=== PATIENT | female | born 1950 | race Caucasian/White ===

== ENCOUNTER 2017-08-17 09:43 | Outpatient (RCR) | payer MEDICARE, OTHER, SELFPAY ==
[2017-08-17 10:36] LABS: Prothrombin Time Fingerstick 34.1 SEC (11.9-14.4)
[2017-08-31 14:36] LABS: Prothrombin Time Fingerstick 41.4 SEC (11.9-14.4)
[2017-09-14 11:50] LABS: Prothrombin Time Fingerstick 25.3 SEC (11.9-14.4)
[2017-09-28 11:41] LABS: Prothrombin Time Fingerstick 24.9 SEC (11.9-14.4)
== END 2017-08-17 15:00 | disposition home or self-care (01) ==
LOC: MTLAB 09:43
PROVIDERS: Family Provider Family Medicine; PCP Family Medicine; Visit Provider Family Medicine
DX: Z86.718 Personal history of other venous thrombosis and embolism (principal)
CPT/HCPCS: 36416; 85610

== ENCOUNTER 2017-10-26 11:10 | Outpatient (RCR) | payer MEDICARE, OTHER, SELFPAY ==
[2017-10-26 11:25] LABS: Prothrombin Time Fingerstick 26.3 SEC (11.9-14.4)
== END 2017-10-26 12:00 | disposition home or self-care (01) ==
LOC: MTLAB 11:10
PROVIDERS: Family Provider Family Medicine; PCP Family Medicine; Visit Provider Family Medicine
DX: I26.99 Other pulmonary embolism without acute cor pulmonale (principal)
CPT/HCPCS: 36416; 85610

== ENCOUNTER → 2017-11-26 09:26 | Outpatient (CLI) | payer MEDICARE, OTHER, SELFPAY ==
[2017-11-26 09:45] LABS: Prothrombin Time Fingerstick 19.3 SEC (11.9-14.4)
== END ==
PROVIDERS: Family Provider Family Medicine; PCP Family Medicine; Visit Provider Family Medicine
DX: I26.99 Other pulmonary embolism without acute cor pulmonale (principal)
CPT/HCPCS: 36416; 85610

== ENCOUNTER 2017-12-24 09:32 | Outpatient (RCR) | payer MEDICARE, OTHER, SELFPAY ==
[2017-12-10 08:01] LABS: Prothrombin Time Fingerstick 22.4 SEC (11.9-14.4)
[2017-12-24 09:46] LABS: Prothrombin Time Fingerstick 21.1 SEC (11.9-14.4)
== END 2017-12-24 10:00 | disposition home or self-care (01) ==
LOC: MTLAB 09:32
PROVIDERS: Family Provider Family Medicine; PCP Family Medicine; Visit Provider Family Medicine
DX: I26.99 Other pulmonary embolism without acute cor pulmonale (principal)
CPT/HCPCS: 36416; 85610

== ENCOUNTER 2018-01-07 11:02 | Outpatient (RCR) | payer MEDICARE, OTHER, SELFPAY ==
[2018-01-07 11:16] LABS: Prothrombin Time Fingerstick 23.7 SEC (11.9-14.4)
== END 2018-01-07 12:00 | disposition home or self-care (01) ==
LOC: MTLAB 11:02
PROVIDERS: Family Provider Family Medicine; PCP Family Medicine; Visit Provider Family Medicine
DX: I26.99 Other pulmonary embolism without acute cor pulmonale (principal)
CPT/HCPCS: 36416; 85610

== ENCOUNTER 2018-02-07 07:27 | Outpatient (RCR) | payer MEDICARE, OTHER, SELFPAY ==
[2018-02-07 07:41] LABS: Prothrombin Time Fingerstick 25.5 SEC (11.9-14.4)
== END 2018-02-07 09:00 ==
LOC: MTLAB 07:27
PROVIDERS: Family Provider Family Medicine; PCP Family Medicine; Visit Provider Family Medicine
DX: I26.99 Other pulmonary embolism without acute cor pulmonale (principal)
CPT/HCPCS: 36416; 85610

== ENCOUNTER 2018-03-10 07:47 | Outpatient (RCR) | payer MEDICARE, OTHER, SELFPAY ==
[2018-03-10 08:00] LABS: Prothrombin Time Fingerstick 28.9 SEC (11.9-14.4)
== END 2018-03-10 09:00 | disposition home or self-care (01) ==
LOC: MTLAB 07:47
PROVIDERS: Family Provider Family Medicine; PCP Family Medicine; Visit Provider Family Medicine
DX: Z86.718 Personal history of other venous thrombosis and embolism (principal)
CPT/HCPCS: 36416; 85610

== ENCOUNTER → 2018-04-12 08:27 | Outpatient (CLI) | payer MEDICARE, OTHER, SELFPAY ==
[2018-04-12 08:50] LABS: Prothrombin Time Fingerstick 33.8 SEC (11.9-14.4)
== END ==
PROVIDERS: Family Provider Family Medicine; PCP Family Medicine; Visit Provider Family Medicine
DX: I26.99 Other pulmonary embolism without acute cor pulmonale (principal)
CPT/HCPCS: 36416; 85610

== ENCOUNTER 2018-04-25 07:25 | Outpatient (RCR) | payer MEDICARE, OTHER, SELFPAY | END 2018-04-25 09:00 | disposition home or self-care (01) | LOC: MTLAB 07:25 | PROVIDERS: Family Provider Family Medicine; PCP Family Medicine; Visit Provider Family Medicine | DX: I26.99 Other pulmonary embolism without acute cor pulmonale (principal); Z86.718 Personal history of other venous thrombosis and embolism | CPT/HCPCS: 36416; 85610 ==

== ENCOUNTER → 2018-05-27 07:01 | Outpatient (CLI) | payer MEDICARE, OTHER, SELFPAY ==
[2018-05-27 10:56] LABS: International Normalized Ratio 1.9; Prothrombin Time (Protime)PT. 22.1 SECONDS (11.7-14.9)
[2018-05-27 10:56] LABS: Hematocrit 46.2 % (37-47); Hemoglobin 14.7 g/dl (12.0-15.0); Mean Corp Hgb Conc 31.8 g/gl (32-36); Mean Corpuscular Hgb 28.8 pg (27.0-32.0); Mean Corpuscular Volume 90.4 fL (81-99); Platelet Count 247 K/mm3 (150-450); RBC Distribution Width CV 14.4 % (11.6-14.6); Red Blood Count 5.11 M/mm3 (4.2-5.4); White Blood Count 6.9 K/mm3 (4.4-11.0)
[2018-05-27 10:58] LABS: Scan Indicated on CBC? Y/N NO
[2018-05-27 11:10] LABS: ALB/GLOB Ratio 0.9 RATIO (0.9-2.4); AST(SGOT) 19 U/L (15-37); Alanine Aminotransfer ALT/SGPT 35 U/L (13-56); Albumin, Serum 3.8 g/dL (3.2-5.0); Alkaline Phosphatase 66 U/L (45-117); Anion Gap 7 (5-15); BUN 20 mg/dL (7-18); Calcium,Total 8.9 mg/dL (8.5-10.1); Chloride 106 mmol/L (98-107); Creatinine, Serum 0.74 mg/dL (0.55-1.02); EST Glomerular Filtration Rate 83 mL/min (>60); Est Glom Filt Rate - Afr Amer 100 mL/min (>60); Globulin 4.4 g/dL (2.2-4.2); Glucose 97 mg/dL (74-106); Potassium 4.5 mmol/L (3.5-5.1); Protein, Total 8.2 g/dL (6.4-8.2); Sodium Level 139 mmol/L (136-145); Thyroid Stim Hormone (TSH) 0.92 uIU/mL (0.358-3.74)
== END ==
PROVIDERS: Family Provider Family Medicine; PCP Family Medicine; Referring Provider Family Medicine; Visit Provider Family Medicine
DX: I10 Essential (primary) hypertension (principal); E03.9 Hypothyroidism, unspecified; I26.99 Other pulmonary embolism without acute cor pulmonale
CPT/HCPCS: 36415; 80053; 84443; 85027; 85610

== ENCOUNTER 2018-06-13 08:17 | Outpatient (RCR) | payer MEDICARE, OTHER, SELFPAY ==
[2018-06-13 08:30] LABS: Prothrombin Time Fingerstick 34.1 SEC (11.9-14.4)
== END 2018-06-13 09:00 | disposition home or self-care (01) ==
LOC: MTLAB 08:17
PROVIDERS: Family Provider Family Medicine; PCP Family Medicine; Referring Provider Family Medicine; Visit Provider Family Medicine
DX: I26.99 Other pulmonary embolism without acute cor pulmonale (principal)
CPT/HCPCS: 36416; 85610

== ENCOUNTER 2018-07-15 08:18 | Outpatient (RCR) | payer MEDICARE, OTHER, SELFPAY ==
[2018-06-27 14:34] VITALS: BMI 47.9
[2018-07-15 08:36] LABS: Prothrombin Time Fingerstick 32.1 SEC (11.9-14.4)
== END 2018-07-15 09:00 | disposition home or self-care (01) ==
LOC: MTLAB 08:18
PROVIDERS: Family Provider Family Medicine; PCP Family Medicine; Referring Provider Family Medicine; Visit Provider Family Medicine
DX: I26.99 Other pulmonary embolism without acute cor pulmonale (principal)
CPT/HCPCS: 36416; 85610

== ENCOUNTER 2018-08-15 13:39 | Outpatient (RCR) | payer MEDICARE, SELFPAY ==
[2018-07-21 15:46] VITALS: BMI 47.9
[2018-08-15 13:55] LABS: Prothrombin Time Fingerstick 26.1 SEC (11.9-14.4)
== END 2018-08-15 15:00 | disposition home or self-care (01) ==
LOC: MTLAB 13:39
PROVIDERS: Family Provider Family Medicine; PCP Family Medicine; Referring Provider Family Medicine; Visit Provider Family Medicine
DX: I26.99 Other pulmonary embolism without acute cor pulmonale (principal)
CPT/HCPCS: 36416; 85610

== ENCOUNTER 2018-09-15 13:44 | Outpatient (RCR) | payer MEDICARE, SELFPAY ==
[2018-07-21 15:46] VITALS: BMI 47.9
[2018-09-15 13:56] LABS: Prothrombin Time Fingerstick 29.5 SEC (11.9-14.4)
== END 2018-10-06 14:33 | disposition home or self-care (01) ==
LOC: MTLAB 13:44
PROVIDERS: Family Provider Family Medicine; PCP Family Medicine; Referring Provider Family Medicine; Visit Provider Family Medicine
DX: I26.99 Other pulmonary embolism without acute cor pulmonale (principal)
CPT/HCPCS: 36416; 85610

== ENCOUNTER 2018-10-13 14:17 | Outpatient (RCR) | payer MEDICARE, SELFPAY ==
[2018-07-21 15:46] VITALS: BMI 47.9
[2018-10-13 14:31] LABS: Prothrombin Time Fingerstick 28.2 SEC (11.9-14.4)
== END 2018-10-13 15:00 ==
LOC: MTLAB 14:17
PROVIDERS: Family Provider Family Medicine; PCP Family Medicine; Referring Provider Family Medicine; Visit Provider Family Medicine
DX: I26.99 Other pulmonary embolism without acute cor pulmonale (principal)
CPT/HCPCS: 36416; 85610

== ENCOUNTER 2018-11-28 06:47 | Outpatient (RCR) | payer MEDICARE, OTHER, SELFPAY ==
[2018-07-21 15:46] VITALS: BMI 47.9
[2018-11-15 09:20] LABS: Prothrombin Time Fingerstick 22.6 SEC (11.9-14.4)
[2018-11-28 07:35] LABS: Absolute Neutrophil Count 3.3 X10^3/uL (2.0-7.7); Basophil# 0.04 X10^3/uL; Basophil% 0.7 % (0-1); Eosinophil# 0.11 X10^3/uL; Eosinophils% 1.9 % (0-5); Hematocrit 43.4 % (37-47); Hemoglobin 14.1 g/dl (12.0-15.0); Lymphocyte % 30.3 % (19-41); Mean Corp Hgb Conc 32.5 g/gl (32-36); Mean Corpuscular Hgb 29.7 pg (27.0-32.0); Mean Corpuscular Volume 91.4 fL (81-99); Mean Platelet Vol. 10.5 fl (6.2-12.0); Monocyte# 0.66 X10^3/uL; Monocyte% 11.1 % (0-10); Neutrophil # 3.33 X10^3/uL (2.7-7.7); Platelet Count 233 K/mm3 (150-450); RBC Distribution Width CV 13.5 % (11.6-14.6); RBC Distribution Width SD 44.8 fl (35.1-43.9); Red Blood Count 4.75 M/mm3 (4.2-5.4); White Blood Count 5.9 K/mm3 (4.4-11.0)
[2018-11-28 07:38] LABS: POSITIVE COUNT NO; POSITIVE DIFFERENTIAL NO; POSITIVE MORPHOLOGY NO
[2018-11-28 08:02] LABS: ALB/GLOB Ratio 0.9 RATIO (0.9-2.4); AST(SGOT) 20 U/L (15-37); Alanine Aminotransfer ALT/SGPT 29 U/L (13-56); Albumin, Serum 3.8 g/dL (3.2-5.0); Alkaline Phosphatase 56 U/L (45-117); BUN 22 mg/dL (7-18); BUN/Creat Ratio 22.5 RATIO (10-20); Calcium,Total 9.3 mg/dL (8.5-10.1); Chloride 107 mmol/L (98-107); Cholesterol 159 mg/dL (200); Creatinine, Serum 0.98 mg/dL (0.55-1.02); EST Glomerular Filtration Rate 60 mL/min (>60); Est Glom Filt Rate - Afr Amer 73 mL/min (>60); Globulin 4.1 g/dL (2.2-4.2); Glucose 106 mg/dL (74-106); Magnesium 1.9 mg/dL (1.6-2.6); Potassium 3.9 mmol/L (3.5-5.1); Protein, Total 7.9 g/dL (6.4-8.2); Sodium Level 142 mmol/L (136-145); Triglycerides 164 mg/dL
[2018-11-28 08:03] LABS: Anion Gap 7 (5-15); High Density Lipoprotein 45 mg/dL; Thyroid Stim Hormone (TSH) 0.92 uIU/mL (0.358-3.74); Very Low Density Lipoprotein 33 mg/dL (5-40)
== END 2018-12-06 16:00 | disposition home or self-care (01) ==
LOC: MTLAB 06:47
PROVIDERS: Family Provider Family Medicine; PCP Family Medicine; Referring Provider Family Medicine; Visit Provider Family Medicine
DX: I26.99 Other pulmonary embolism without acute cor pulmonale (principal)
CPT/HCPCS: 36415; 36416; 80053; 80061; 83735; 84443; 85025; 85610

== ENCOUNTER 2018-12-28 07:13 | Outpatient (RCR) | payer MEDICARE, OTHER, SELFPAY ==
[2018-07-21 15:46] VITALS: BMI 47.9
[2018-12-28 07:36] LABS: Prothrombin Time Fingerstick 25.3 SEC (11.9-14.4)
== END 2018-12-28 09:00 | disposition home or self-care (01) ==
LOC: MTLAB 07:13
PROVIDERS: Family Provider Family Medicine; PCP Family Medicine; Referring Provider Family Medicine; Visit Provider Family Medicine
DX: I26.99 Other pulmonary embolism without acute cor pulmonale (principal)
CPT/HCPCS: 36416; 85610

== ENCOUNTER 2019-01-30 07:34 | Outpatient (RCR) | payer MEDICARE, OTHER, SELFPAY ==
[2018-07-21 15:46] VITALS: BMI 47.9
[2019-01-17 10:48] VITALS: BMI 47.9
[2019-01-30 07:50] LABS: Prothrombin Time Fingerstick 26.9 SEC (11.9-14.4)
== END 2019-01-30 08:00 | disposition home or self-care (01) ==
LOC: MTLAB 07:34
PROVIDERS: Family Provider Family Medicine; PCP Family Medicine; Referring Provider Family Medicine; Visit Provider Family Medicine
DX: I26.99 Other pulmonary embolism without acute cor pulmonale (principal)
CPT/HCPCS: 36416; 85610

== ENCOUNTER 2019-03-01 07:02 | Outpatient (RCR) | payer MEDICARE, OTHER, SELFPAY ==
[2019-01-17 10:48] VITALS: BMI 47.9
[2019-03-01 07:15] LABS: Prothrombin Time Fingerstick 30.4 SEC (11.9-14.4)
== END 2019-03-08 16:03 | disposition home or self-care (01) ==
LOC: MTLAB 07:02
PROVIDERS: Family Provider Family Medicine; PCP Family Medicine; Referring Provider Family Medicine; Visit Provider Family Medicine
DX: I26.99 Other pulmonary embolism without acute cor pulmonale (principal)
CPT/HCPCS: 36416; 85610

== ENCOUNTER 2019-05-08 07:38 | Outpatient (RCR) | payer MEDICARE, OTHER, SELFPAY ==
[2019-01-17 10:48] VITALS: BMI 47.9
[2019-05-08 07:49] LABS: Prothrombin Time Fingerstick 25.5 SEC (11.9-14.4)
== END 2019-05-08 18:00 | disposition home or self-care (01) ==
LOC: MTLAB 07:38
PROVIDERS: Family Provider Family Medicine; PCP Family Medicine; Referring Provider Family Medicine; Visit Provider Family Medicine
DX: I26.99 Other pulmonary embolism without acute cor pulmonale (principal)
CPT/HCPCS: 36416; 85610

== ENCOUNTER 2019-06-07 07:49 | Outpatient (RCR) | payer MEDICARE, OTHER, SELFPAY ==
[2019-01-17 10:48] VITALS: BMI 47.9
[2019-06-07 08:02] LABS: Prothrombin Time Fingerstick 30.4 SEC (11.9-14.4)
== END 2019-06-07 18:00 | disposition home or self-care (01) ==
LOC: MTLAB 07:49
PROVIDERS: Family Provider Family Medicine; PCP Family Medicine; Referring Provider Family Medicine; Visit Provider Family Medicine
DX: Z86.711 Personal history of pulmonary embolism (principal)
CPT/HCPCS: 36416; 85610

== ENCOUNTER 2019-08-03 14:25 | Outpatient (RCR) | payer MEDICARE, OTHER, SELFPAY ==
[2019-01-17 10:48] VITALS: BMI 47.9
[2019-07-10 08:51] LABS: Hematocrit 43.1 % (37-47); Mean Corp Hgb Conc 32.5 g/dL (32-36); Mean Corpuscular Volume 89.2 fL (81-99); Mean Platelet Vol. 10.1 fl (6.2-12.0); Platelet Count 231 K/mm3 (150-450); RBC Distribution Width CV 14.6 % (11.6-14.6); RBC Distribution Width SD 47.6 fl (35.1-43.9); Red Blood Count 4.83 M/mm3 (4.2-5.4); White Blood Count 5.6 K/mm3 (4.4-11.0)
[2019-07-10 09:26] LABS: International Normalized Ratio 1.9; Prothrombin Time (Protime)PT. 21.6 SECONDS (11.7-14.9)
[2019-07-10 09:30] LABS: ALB/GLOB Ratio 0.9 RATIO (0.9-2.4); AST(SGOT) 21 U/L (15-37); Alanine Aminotransfer ALT/SGPT 34 U/L (13-56); Albumin, Serum 3.7 g/dL (3.2-5.0); Alkaline Phosphatase 60 U/L (45-117); Anion Gap 7 (5-15); BUN 19 mg/dL (7-18); BUN/Creat Ratio 21.3 RATIO (10-20); Calcium,Total 8.8 mg/dL (8.5-10.1); Chloride 108 mmol/L (98-107); Creatinine, Serum 0.89 mg/dL (0.55-1.02); EST Glomerular Filtration Rate 66 mL/min (>60); Est Glom Filt Rate - Afr Amer 80 mL/min (>60); Globulin 4.1 g/dL (2.2-4.2); Glucose 114 mg/dL (74-106); Potassium 4.1 mmol/L (3.5-5.1); Protein, Total 7.8 g/dL (6.4-8.2); Sodium Level 140 mmol/L (136-145)
[2019-07-20 08:01] LABS: Prothrombin Time Fingerstick 32.9 SEC (11.9-14.4)
[2019-08-03 14:36] LABS: Prothrombin Time Fingerstick 30.6 SEC (11.9-14.4)
== END 2019-08-03 18:00 | disposition home or self-care (01) ==
LOC: LAB 14:25
PROVIDERS: Family Provider Family Medicine; PCP Family Medicine; Referring Provider Family Medicine; Visit Provider Family Medicine
DX: I26.99 Other pulmonary embolism without acute cor pulmonale (principal); I10 Essential (primary) hypertension; E03.9 Hypothyroidism, unspecified; Z79.01 Long term (current) use of anticoagulants
CPT/HCPCS: 36415; 36416; 80053; 84443; 85027; 85610

== ENCOUNTER 2019-09-04 09:05 | Outpatient (RCR) | payer MEDICARE, OTHER, SELFPAY ==
[2019-01-17 10:48] VITALS: BMI 47.9
== END 2019-09-04 18:00 | disposition home or self-care (01) ==
LOC: LAB 09:05
PROVIDERS: Family Provider Family Medicine; PCP Family Medicine; Referring Provider Family Medicine; Visit Provider Family Medicine
DX: I82.409 Acute embolism and thrombosis of unspecified deep veins of unspecified lower extremity (principal); I26.99 Other pulmonary embolism without acute cor pulmonale; Z86.718 Personal history of other venous thrombosis and embolism
CPT/HCPCS: 36416; 85610

== ENCOUNTER 2019-10-06 08:49 | Outpatient (RCR) | payer MEDICARE, OTHER, SELFPAY ==
[2019-01-17 10:48] VITALS: BMI 47.9
[2019-10-09 13:51] LABS: Prothrombin Time Fingerstick 29.9 SEC (11.9-14.4)
== END 2019-10-06 18:00 | disposition home or self-care (01) ==
LOC: LAB 08:49
PROVIDERS: Family Provider Family Medicine; PCP Family Medicine; Referring Provider Family Medicine; Visit Provider Family Medicine
DX: I82.409 Acute embolism and thrombosis of unspecified deep veins of unspecified lower extremity (principal); I26.99 Other pulmonary embolism without acute cor pulmonale; Z86.718 Personal history of other venous thrombosis and embolism
CPT/HCPCS: 36416; 85610

== ENCOUNTER 2019-11-23 06:53 | Outpatient (RCR) | payer MEDICARE, OTHER, SELFPAY ==
[2019-01-17 10:48] VITALS: BMI 47.9
[2019-10-17 17:02] VITALS: BMI 47.9
[2019-11-23 08:30] LABS: Prothrombin Time Fingerstick 30.4 SEC (11.9-14.4)
== END 2019-12-07 18:00 | disposition home or self-care (01) ==
LOC: LAB 06:53
PROVIDERS: Family Provider Family Medicine; PCP Family Medicine; Referring Provider Family Medicine; Visit Provider Family Medicine
DX: I26.99 Other pulmonary embolism without acute cor pulmonale (principal)
CPT/HCPCS: 36416; 85610

== ENCOUNTER 2019-12-25 06:45 | Outpatient (RCR) | payer MEDICARE, OTHER, SELFPAY ==
[2019-10-17 17:02] VITALS: BMI 47.9
[2019-12-25 08:26] LABS: Prothrombin Time Fingerstick 27.2 SEC (11.9-14.4)
== END 2019-12-25 18:00 | disposition home or self-care (01) ==
LOC: LAB 06:45
PROVIDERS: Family Provider Family Medicine; PCP Family Medicine; Referring Provider Family Medicine; Visit Provider Family Medicine
DX: Z86.718 Personal history of other venous thrombosis and embolism (principal)
CPT/HCPCS: 36416; 85610

== ENCOUNTER 2020-01-25 06:06 | Outpatient (RCR) | payer MEDICARE, OTHER, SELFPAY ==
[2019-10-17 17:02] VITALS: BMI 47.9
[2020-01-09 09:44] VITALS: BMI 47.9
[2020-01-25 06:35] LABS: Prothrombin Time Fingerstick 26.6 SEC (11.9-14.4)
== END 2020-01-25 18:00 | disposition home or self-care (01) ==
LOC: LAB 06:06
PROVIDERS: Family Provider Family Medicine; PCP Family Medicine; Referring Provider Family Medicine; Visit Provider Family Medicine
DX: Z86.718 Personal history of other venous thrombosis and embolism (principal)
CPT/HCPCS: 36416; 85610

== ENCOUNTER 2020-02-27 06:28 | Outpatient (RCR) | payer MEDICARE, OTHER, SELFPAY ==
[2020-01-09 09:44] VITALS: BMI 47.9
[2020-02-27 07:02] LABS: Hematocrit 43.8 % (37-47); Hemoglobin 14.3 g/dL (12.0-15.0); Mean Corp Hgb Conc 32.6 g/dL (32-36); Platelet Count 274 K/mm3 (150-450); RBC Distribution Width CV 13.6 % (11.6-14.6); RBC Distribution Width SD 46.1 fl (35.1-43.9); Red Blood Count 4.76 M/mm3 (4.2-5.4); White Blood Count 6.9 K/mm3 (4.4-11.0)
[2020-02-27 07:12] LABS: International Normalized Ratio 2.5; Prothrombin Time (Protime)PT. 26.8 SECONDS (11.7-14.9)
[2020-02-27 07:59] LABS: ALB/GLOB Ratio 0.9 RATIO (0.9-2.4); AST(SGOT) 15 U/L (15-37); Alanine Aminotransfer ALT/SGPT 34 U/L (13-56); Albumin, Serum 3.8 g/dL (3.2-5.0); Alkaline Phosphatase 61 U/L (45-117); Anion Gap 6 (5-15); BUN 24 mg/dL (7-18); Calcium,Total 8.9 mg/dL (8.5-10.1); Chloride 108 mmol/L (98-107); Creatinine, Serum 1.09 mg/dL (0.55-1.02); EST Glomerular Filtration Rate 53 mL/min (>60); Est Glom Filt Rate - Afr Amer 64 mL/min (>60); Globulin 4.3 g/dL (2.2-4.2); Glucose 129 mg/dL (74-106); Potassium 4.2 mmol/L (3.5-5.1); Protein, Total 8.1 g/dL (6.4-8.2); Sodium Level 140 mmol/L (136-145); Thyroid Stim Hormone (TSH) 2.33 uIU/mL (0.358-3.74)
== END 2020-02-27 18:00 | disposition home or self-care (01) ==
LOC: LAB 06:28
PROVIDERS: Family Provider Family Medicine; PCP Family Medicine; Referring Provider Family Medicine; Visit Provider Family Medicine
DX: Z86.718 Personal history of other venous thrombosis and embolism (principal); I10 Essential (primary) hypertension
CPT/HCPCS: 36415; 80053; 84443; 85027; 85610

== ENCOUNTER 2020-03-28 07:02 | Outpatient (RCR) | payer MEDICARE, OTHER, SELFPAY ==
[2020-01-09 09:44] VITALS: BMI 47.9
[2020-03-28 07:15] LABS: Prothrombin Time Fingerstick 31.7 SEC (11.9-14.4)
== END 2020-04-08 18:00 | disposition home or self-care (01) ==
LOC: LAB 07:02
PROVIDERS: Family Provider Family Medicine; PCP Family Medicine; Referring Provider Family Medicine; Visit Provider Family Medicine
DX: Z86.718 Personal history of other venous thrombosis and embolism (principal)
CPT/HCPCS: 36416; 85610

== ENCOUNTER 2020-04-22 14:51 | Emergency (ER) | payer MEDICARE, OTHER, SELFPAY ==
[2020-01-09 09:44] VITALS: BMI 47.9
[2020-04-22 14:52] VITALS: BP 206/78; PULSE 53; PULSE 96; RESP 17; TEMP 35.9; O2SAT 95; O2SAT 96; BMI 50.8
--- NOTE | 2020-04-22 15:14 | VDLE_ITS ---
Reason For Study: swelling RIGHT LEFT GSV is normal. GSV is normal. CFV is compressible, spontaneous, phasic, Chronic vein wall thickening is noted in the competent and demonstrates normal CFV, FV, POP V, and T/P Trunk. Normal venous augmentation. flow patterns noted. FV is compressible, spontaneous, phasic, PTV is compressible. competent and demonstrates normal LT PerV is compressible. augmentation. POP V is compressible, spontaneous, phasic, competent and demonstrates normal augmentation. T/P Trunk is compressible. PTV is compressible. RT PerV is compressible. Procedure Exam performed portable in ED. The exam was diagnostic. A preliminary report was called and/or faxed to Dr. Puckett. Interpretation Summary Chronic vein wall thickening is noted in the left common femoral vein, femoral vein, popliteal vein, and tibio-peroneal trunk, though with normal venous flow patterns. The left posterior tibial vein and peroneal vein are patent and compressible. Deep veins of the right lower extremity are patent and compressible segmentally. There is no evidence of right lower extremity deep vein thrombosis. Valvular competence appears intact within the proximal deep venous system on the right . The great saphenous veins appear bilaterally patent and compressible segmentally. Ordering Physician: Linnette Puckett Performed By: Ross Woodard RVT
--- NOTE | 2020-04-22 15:14 | RAD_ITS ---
STUDY: X-RAY CHEST REASON FOR EXAM: Female, 69 years old. BILATERAL LEG WEAKNESS, SHORT OF BREATH ON EXERTION TECHNIQUE: Single AP portable view of the chest. COMPARISON: 02/26/2016 FINDINGS: The lungs are clear and expanded. Elevated right hemidiaphragm which is unchanged. Normal size heart. Normal mediastinum and mario. Normal visualized pulmonary arteries. Normal visualized aortic arch and descending thoracic aorta. Normal visualized thoracic spine. Normal visualized ribs, clavicles, and shoulders. There is no demonstrated abnormality of the visualized soft tissue structures of the upper abdomen. RAD/Chest 1 View (Portable) IMPRESSION: No active disease. Electronically Signed: Onesimo Person MD at 16:24 EDT Tel , Service support ,
--- NOTE | 2020-04-22 15:14 | EKG12_ITS ---
Test Reason : WEAKNESS Blood Pressure : / mmHG Vent. Rate : 094 BPM Atrial Rate : 094 BPM P-R Int : 182 ms QRS Dur : 132 ms QT Int : 396 ms P-R-T Axes : 064 053 013 degrees QTc Int : 495 ms Sinus rhythm with Premature ventricular complexes Right bundle branch block Abnormal ECG Confirmed by FABIO STARKEY, KAMI ([id number]), news copy editor LORI HANLEY ([id number]) on 04/24/2020 11:08:08 AM Referred By: Confirmed By:KAMI MCCARTHY MD
--- NOTE | 2020-04-22 15:26 | ED.DCSUM_ITS ---
- ER Visit Summary Date of Service: 04/22/20 Chief Complaint: Bilateral leg weakness History of Present Illness: The patient is a 69 F with bilateral leg weakness. Patient states she stood up and started to ambulate and she felt like her legs were going to give out. She did not fall. She denies dizziness or vertigo. She states she has been off balance for years and this is not unusual for her. The weakness has now improved. She denies back pain. Denies bowel or bladder incontinence. She states she also was experiencing shortness of breath and postnasal drip. This has also improved. She denies chest pain. Denies fever or cough. Denies vision or speech changes. Denies confusion. She also has a right forearm skin tear from hitting it on a screen door earlier today. She is on Coumadin for history of DVT/PE. Unknown last tetanus immunization. Physical Examination: Vitals are stable. Patient is afebrile. Alert no acute distress. HEENT exam is unremarkable. Neck is supple. Lungs are clear and equal bilaterally. Heart is regular rate and rhythm. Abdomen is soft nontender nondistended. Extremities mild right forearm skin tear with no active bleeding Skin is warm and dry. No focal neurologic deficit. Normal strength and sensation Remainder of exam is unremarkable. Emergency Department Course and Treatment: Wound was cleaned and dressed. She was given tetanus IM. CBC, chemistries unremarkable. Troponin is negative. INR 2.5. EKG is sinus rhythm rate of 94 with right bundle branch block, similar to previous. Bilateral venous Doppler shows no evidence of acute DVT. Chest x- ray shows no active disease. CT head shows chronic involutional changes of the brain. On reevaluation, patient is feeling improved. She is able to ambulate in the ED without difficulty. She is advised to follow-up with her primary care physician. Advised return to the ED for worsening complaints. Disposition: Discharge home Impression: Generalized weakness, improved This note was generated with [employer] dictation software. It may contain incorrect words, spelling, and punctuation that were not noted in review of the chart prior to signing ED Disposition - Plan for ED Patient: Instructions: ED Weakness [facility] Referrals: Surya Francisco MD [Primary Care Provider] -
[2020-04-22 15:38] LABS: Absolute Lymphocyte Count 1.18 X10^3/uL (0.83-4.51); Absolute Neutrophil Count 6.1 X10^3/uL (2.0-7.7); Basophil# 0.06 X10^3/uL; Basophil% 0.7 % (0-1); Eosinophil# 0.12 X10^3/uL; Eosinophils% 1.4 % (0-5); Hematocrit 41.2 % (37-47); Hemoglobin 13.7 g/dL (12.0-15.0); Lymphocyte # 1.18 X10^3/ul (4.0); Lymphocyte % 13.9 % (19-41); Mean Corp Hgb Conc 33.3 g/dL (32-36); Mean Corpuscular Hgb 30.6 pg (27.0-32.0); Mean Platelet Vol. 9.8 fl (6.2-12.0); Monocyte# 1.04 X10^3/uL; Monocyte% 12.2 % (0-10); NRBC Flagged by Analyzer 0 % (0-5); Neutrophil # 6.09 X10^3/uL (2.7-7.7); Neutrophil % 71.6 % (47-70); Platelet Count 255 K/mm3 (150-450); RBC Distribution Width CV 14.1 % (11.6-14.6); RBC Distribution Width SD 47.8 fl (35.1-43.9); Red Blood Count 4.48 M/mm3 (4.2-5.4); White Blood Count 8.5 K/mm3 (4.4-11.0)
[2020-04-22] MEDS: Diphth,Pertuss(Acell),Tet Vac 0.5 ML Vial IM (15:55)
[2020-04-22 15:56] LABS: International Normalized Ratio 2.5
[2020-04-22 16:02] LABS: Anion Gap 5 (5-15); BUN 21 mg/dL (7-18); BUN/Creat Ratio 23.3 RATIO (10-20); Calcium,Total 9.5 mg/dL (8.5-10.1); Chloride 107 mmol/L (98-107); EST Glomerular Filtration Rate 65 mL/min (>60); Est Glom Filt Rate - Afr Amer 79 mL/min (>60); Estimated Creatinine Clearance 56.56 ml/min; Glucose 100 mg/dL (74-106); Potassium 4.1 mmol/L (3.5-5.1); Sodium Level 141 mmol/L (136-145)
--- NOTE | 2020-04-22 16:12 | CT_ITS ---
STUDY: CT BRAIN WITHOUT CONTRAST REASON FOR EXAM: Female, 69 years old. BILATERAL LEG WEAKNESS WITH SOB ON EXERTION. HX OF PE,DVT, HTN RADIATION DOSAGE (If Supplied By Facility): CTDIvol = ( 44.99 ) mGy, DLP = ( 863.60 ) mGycm TECHNIQUE: Transaxial CT imaging of the brain was performed without administration of intravenous contrast material. Individualized dose optimization techniques were used for this CT. COMPARISON: No relevant priors. FINDINGS: Normal soft tissue structures. Normal calvarium. There is mild cerebral atrophy with widening of the extra-axial spaces and ventricular dilatation. There are areas of decreased attenuation within the white matter tracts of the supratentorial brain, consistent with microvascular disease changes. Normal basal ganglia and thalami. Normal brainstem. Normal cerebellum. There is no intracranial hemorrhage. There are no findings of an acute ischemic infarction. Normal visualized paranasal sinuses. CT/Brain/Head without Contrast IMPRESSION: Chronic involutional changes of the brain. Electronically Signed: Onesimo Person MD at 16:50 EDT Tel , Service support ,
--- NOTE | 2020-04-22 17:21 | ED.DEP ---
ED Disposition - Plan for ED Patient: Instructions: ED Weakness [facility] Referrals: Surya Francisco MD [Primary Care Provider] -
[2020-04-22 17:46] VITALS: RESP 18
== END 2020-04-22 17:48 | disposition home or self-care (01) ==
LOC: ED 15:18
PROVIDERS: Emergency Provider Emergency Medicine; PCP Family Medicine
DX: R53.1 Weakness (principal); I10 Essential (primary) hypertension; Z86.718 Personal history of other venous thrombosis and embolism; Z86.711 Personal history of pulmonary embolism; Z79.01 Long term (current) use of anticoagulants; Z23 Encounter for immunization; Z87.891 Personal history of nicotine dependence; Z79.899 Other long term (current) drug therapy
CPT/HCPCS: 70450; 71045; 80048; 84484; 85025; 85610; 90471; 90715; 93005; 93970; 99283; A4216

== ENCOUNTER 2020-05-22 07:18 | Outpatient (RCR) | payer MEDICARE, OTHER, SELFPAY ==
[2020-01-09 09:44] VITALS: BMI 47.9
[2020-05-22 07:40] LABS: Prothrombin Time Fingerstick 30.8 SEC (11.9-14.4)
== END 2020-05-22 18:00 | disposition home or self-care (01) ==
LOC: LAB 07:18
PROVIDERS: Family Provider Family Medicine; PCP Family Medicine; Referring Provider Family Medicine; Visit Provider Family Medicine
DX: Z86.718 Personal history of other venous thrombosis and embolism (principal)
CPT/HCPCS: 36416; 85610

== ENCOUNTER 2020-06-24 08:23 | Outpatient (RCR) | payer MEDICARE, OTHER, SELFPAY ==
[2020-06-24 08:35] LABS: Prothrombin Time Fingerstick 35.7 SEC (11.9-14.4)
== END 2020-06-24 18:00 | disposition home or self-care (01) ==
LOC: MTLAB 08:23
PROVIDERS: Family Provider Family Medicine; PCP Family Medicine; Referring Provider Family Medicine; Visit Provider Family Medicine
DX: Z86.718 Personal history of other venous thrombosis and embolism (principal)
CPT/HCPCS: 36416; 85610

== ENCOUNTER 2020-07-24 08:34 | Outpatient (RCR) | payer MEDICARE, OTHER, SELFPAY ==
[2020-07-10 09:16] LABS: Prothrombin Time Fingerstick 32.6 SEC (11.9-14.4)
[2020-07-24 08:51] LABS: Prothrombin Time Fingerstick 27.4 SEC (11.9-14.4)
== END 2020-07-24 18:00 | disposition home or self-care (01) ==
LOC: MTLAB 08:34
PROVIDERS: Family Provider Family Medicine; PCP Family Medicine; Referring Provider Family Medicine; Visit Provider Family Medicine
DX: Z86.718 Personal history of other venous thrombosis and embolism (principal); Z79.01 Long term (current) use of anticoagulants
CPT/HCPCS: 36416; 85610

== ENCOUNTER 2020-08-26 08:06 | Outpatient (RCR) | payer MEDICARE, OTHER, SELFPAY ==
[2020-08-26 08:21] LABS: Prothrombin Time Fingerstick 25.1 SEC (11.9-14.4)
== END 2020-08-26 18:00 | disposition home or self-care (01) ==
LOC: MTLAB 08:06
PROVIDERS: Family Provider Family Medicine; PCP Family Medicine; Referring Provider Family Medicine; Visit Provider Family Medicine
DX: Z86.718 Personal history of other venous thrombosis and embolism (principal); Z79.01 Long term (current) use of anticoagulants
CPT/HCPCS: 36416; 85610

== ENCOUNTER 2020-09-27 13:38 | Outpatient (RCR) | payer MEDICARE, OTHER, SELFPAY ==
[2020-09-27 14:41] LABS: Prothrombin Time Fingerstick 23.6 SEC (11.9-14.4)
== END 2020-09-27 18:00 | disposition home or self-care (01) ==
LOC: MTLAB 13:38
PROVIDERS: Family Provider Family Medicine; PCP Family Medicine; Referring Provider Family Medicine; Visit Provider Family Medicine
DX: Z86.718 Personal history of other venous thrombosis and embolism (principal); Z79.01 Long term (current) use of anticoagulants
CPT/HCPCS: 36416; 85610

== ENCOUNTER 2020-10-28 14:44 | Outpatient (RCR) | payer MEDICARE, OTHER, SELFPAY ==
[2020-10-28 14:51] LABS: INR Fingerstick 2.3; Prothrombin Time Fingerstick 25.7 SEC (11.9-14.4)
== END 2020-10-28 18:00 | disposition home or self-care (01) ==
LOC: MTLAB 14:44
PROVIDERS: Family Provider Family Medicine; PCP Family Medicine; Referring Provider Family Medicine; Visit Provider Family Medicine
DX: Z86.718 Personal history of other venous thrombosis and embolism (principal); Z79.01 Long term (current) use of anticoagulants
CPT/HCPCS: 36416; 85610

== ENCOUNTER 2020-12-02 08:56 | Outpatient (RCR) | payer MEDICARE, OTHER, SELFPAY ==
[2020-12-03 00:51] LABS: INR Fingerstick 2.4; Prothrombin Time Fingerstick 26.6 SEC (11.9-14.4)
== END 2020-12-02 18:00 | disposition home or self-care (01) ==
LOC: MTLAB 08:56
PROVIDERS: Family Provider Family Medicine; PCP Family Medicine; Referring Provider Family Medicine; Visit Provider Family Medicine
DX: Z86.718 Personal history of other venous thrombosis and embolism (principal); Z79.01 Long term (current) use of anticoagulants
CPT/HCPCS: 36416; 85610

== ENCOUNTER 2021-01-01 07:06 | Outpatient (RCR) | payer MEDICARE, OTHER, SELFPAY ==
[2021-01-01 07:15] LABS: INR Fingerstick 2.6; Prothrombin Time Fingerstick 29.5 SEC (11.9-14.4)
== END 2021-01-01 18:00 | disposition home or self-care (01) ==
LOC: MTLAB 07:06
PROVIDERS: Family Provider Family Medicine; PCP Family Medicine; Referring Provider Family Medicine; Visit Provider Family Medicine
DX: Z86.718 Personal history of other venous thrombosis and embolism (principal); Z79.01 Long term (current) use of anticoagulants
CPT/HCPCS: 36416; 85610

== ENCOUNTER 2021-01-08 17:46 | Emergency (ER) | payer MEDICARE, OTHER, SELFPAY ==
[2021-01-08 17:47] VITALS: BP 248/109; PULSE 80; RESP 16; TEMP 36.6; O2SAT 94; BMI 47.0
--- NOTE | 2021-01-08 18:21 | RAD_ITS ---
INDICATION: cp EXAMINATION/TECHNIQUE: X-RAY - XR Chest 1 View COMPARISON: 04/22/2020. FINDINGS: Central pulmonary venous congestion. The heart is borderline enlarged. Questionable trace bilateral pleural effusions. Persistent elevation of the right hemidiaphragm. No acute osseous abnormalities. RAD/Chest 1 View (Portable) IMPRESSION: Borderline cardiomegaly with central pulmonary venous congestion and trace bilateral pleural effusions. Cannot rule out superimposed infection in the left lung base. Electronically Signed: Pramod Chavira MD at 19:01 EDT Tel , Service support ,
--- NOTE | 2021-01-08 18:21 | EKG12_ITS ---
Test Reason : DYSRHYTHMIA Blood Pressure : / mmHG Vent. Rate : 085 BPM Atrial Rate : 085 BPM P-R Int : 180 ms QRS Dur : 132 ms QT Int : 396 ms P-R-T Axes : 062 054 005 degrees QTc Int : 471 ms Sinus rhythm with frequent Premature ventricular complexes Right bundle branch block Abnormal ECG Confirmed by LILIA STARKEY, TATIANA ([id number]), legal editor LORI HANLEY ([id number]) on 01/09/2021 12:56:15 PM Referred By: TORI Confirmed By:SOPHIA RODRIGUES MD
--- NOTE | 2021-01-08 18:22 | EDS_ITS ---
HPI History of Present Illness Chief Complaint: Anxiety Informant: patient Onset/Context/Timing Onset: Days Context: Gradual Onset Timing: Waxes and wanes Current Severity: Mild Maximum Severity: Moderate Narrative Narrative: Patient presents with intermittent anxiety for the last 4 days. Patient states that she will have a sensation of a hamster on a wheel in her chest. She would did reported tell her brother she had some chest pain but got better after belching. She states in the past she had similar symptoms when she had a UTI. Patient has had Xanax in the past and done well with that in spite of having an allergy to Ativan. [facility] Medical History (Updated 01/08/21 @ 20:[address] Kalina Shaw MD) Anxiety Arthritis Back pain Difficulty balancing History of DVT (deep vein thrombosis) history of ivc filter history of liver infection History of UTI Hypertension Hypothyroidism Knee pain Limb weakness Liver disease Neck pain Osteoarthritis Pulmonary embolism Shortness of breath Home Medications levothyroxine 100 mcg PO DAILY 12/04/15 [History Last Taken 02/22/17] metoprolol tartrate 50 mg PO BID 12/04/15 [History Last Taken 02/22/17] warfarin 10 mg PO DAILY 12/04/15 [History Last Taken 02/22/17] alprazolam 0.25 mg PO PRN PRN 04/19/16 [History Last Taken 02/22/17] ascorbate calcium (vitamin C) 814 mg/gram oral powder 1,000 mg PO DAILY g 01/17/19 [History Last Taken Unknown] ibuprofen 200 mg capsule 200 mg PO Q6H 01/17/19 [History Last Taken Unknown] lisinopril 2.5 mg tablet 30 mg PO DAILY 01/17/19 [History Last Taken Unknown] gsdvneqsswic-Oc-qqfx-minerals 1 tab PO DAILY tab 01/17/19 [History Last Taken Unknown] potassium 99 mg tablet 99 mg PO DAILY 01/17/19 [History Last Taken Unknown] alprazolam [Xanax] 0.25 mg PO TID PRN #14 tab 01/08/21 [Rx Last Taken Unknown] Allergy/AdvReac Type Severity Reaction Status Date / Time Sulfa (Sulfonamide Allergy Severe Anaphylaxis Verified 01/08/21 17:50 Antibiotics) acetaminophen [From Tylenol] Allergy Anaphylaxis Verified 01/08/21 17:50 citalopram hydrobromide Allergy Other Verified 01/08/21 17:50 [From Celexa] naproxen Allergy Shortness Verified 01/08/21 17:50 of breath sertraline HCl [From Zoloft] Allergy Shortness Verified 01/08/21 17:50 of breath lorazepam [From Ativan] AdvReac Mild Agitation Verified 01/08/21 17:50 meclizine HCl [From Antivert] AdvReac Mild rapid Verified 01/08/21 17:50 hearth beat Surgical History H/O colectomy H/O umbilical hernia repair History of cholecystectomy Social History Smoking Status: Never smoker alcohol intake: never ROS ROS ED Constitutional Constitutional ED: Denies chills or fever(s) Eyes Eyes: Denies change in vision ENT ENT ED: Denies sore throat Cardiovascular Cardiovascular: Reports chest pain Respiratory/Chest Respiratory/Chest: Denies cough or dyspnea Gastrointestinal Gastrointestinal: Denies abdominal pain, diarrhea, nausea or vomiting Genitourinary Genitourinary ED: Denies dysuria Musculoskeletal Musculoskeletal: Denies back pain Integumentary Denies rash Neurologic Neurologic: Denies headache(s) or weakness Psychiatric Psychiatric: Reports anxiety; Denies depression Endocrine Endocrinology: Denies polydipsia or polyuria Allergic/Immunologic Allergic/Immunologic ED: Denies urticaria EXAM Physical Exam Const Vital Signs: 01/08/21 17:47 Temperature 97.8 F Temperature Source Temporal Pulse Rate 80 Respiratory Rate 16 Blood Pressure 248/109 H Blood Pressure Mean 155 Pulse Ox 94 Oxygen Delivery Method Room Air Positive well nourished and well developed General Appearance ED: well developed HEENT Reports normocephalic and head/scalp atraumatic Eyes PERRL and EOMs intact bilaterally Neck supple Chest Wall inspection of chest normal and palpation of chest normal Resp normal respiratory effort and clear to auscultation bilaterally Cardio regular rate and regular rhythm GI normal to inspection, nondistended, normoactive bowel sounds Palpation: soft Back/Spine no CVA tenderness Extremity normal to inspection Neuro oriented x3 and no sensory deficits noted Sensorium / Orientation: alert Motor Exam: strength 5/5 throughout Psych Mood & Affect: anxious Skin no rashes or lesions noted MDM MDM MDM Narrative Medical decision making narrative: Patient was given 0.25 mg of Xanax. EKG, lab work, urinalysis are obtained. Lab Data Attestation: I reviewed the patient's lab results. Labs: Laboratory Results - last 24 hr 01/08/21 01/08/21 01/08/21 18:25 18:37 18:37 WBC 8.1 RBC 4.71 Hgb 13.9 Hct 42.5 MCV 90.2 MCH 29.5 MCHC 32.7 RDW Std Deviation 45.9 H RDW Coeff of Cathleen 13.8 Plt Count 295 MPV 9.9 Immature Gran % (Auto) 0.400 Neut % (Auto) 68.3 Lymph % (Auto) 19.4 Clare % (Auto) 10.3 H Eos % (Auto) 0.9 Baso % (Auto) 0.7 Absolute Neuts (auto) 5.5 Absolute Lymphs (auto) 1.57 Nucleated RBC % 0 Sodium 140 Potassium 4.1 Chloride 106 Carbon Dioxide 29.0 Anion Gap 5 BUN 11 Creatinine 0.84 Estim Creat Clear Calc 59.74 Est GFR (MDRD) Af Amer 86 Est GFR (MDRD) Non-Af 71 BUN/Creatinine Ratio 13.1 Glucose 113 H Calcium 9.1 Troponin I < 0.015 Urine Color Yellow Urine Clarity Cloudy Urine pH 6.0 Ur Specific Moore 1.010 Urine Protein 15 H Urine Glucose (UA) Normal Urine Ketones Negative Urine Occult Blood 250 H Urine Nitrite Negative Urine Bilirubin Negative Urine Urobilinogen Normal Ur Leukocyte Esterase 25 H Urine RBC 50-100 SEEN Urine WBC 0-5 SEEN Ur Squamous Epith Cells 0 SEEN Urine Bacteria 0 SEEN WBC Casts 0-5 SEEN Urine Mucus 0 SEEN Radiography Chest X-Ray - ED: 1 View, Read by ED Physician and Chronic Changes Diagnostic Testing: Radiology Impression Chest X-Ray 01/08/21 18:21 IMPRESSION: Borderline cardiomegaly with central pulmonary venous congestion and trace bilateral pleural effusions. Cannot rule out superimposed infection in the left lung base. Electronically Signed: Pramod Chavira MD at 19:01 EDT Tel , Service support , EKG Initial EKG: Attestation: I personally reviewed and interpreted this EKG as follows: Interpretation: Sinus Rhythm (Sinus 85 with frequent PVCs. No acute ST change. Right bundle branch block noted.) Prior EKG tracings: available for review Prior: Unchanged Treatment and Re-Evaluation Comments:: On repeat evaluation patient feels much improved. Blood pressure at this time is 175/112. She will be sure to continue her antihypertensives at home. She will be written a short course of Xanax until she can follow-up with her primary care physician. Discharge Plan Triage Chief Complaint: Anxiety ED Provider: Kalina Shaw Dx/Rx/DC Orders Clinical Impression: Anxiety, Hypertension Instructions: ED Anxiety Reaction, ED Hypertension, Established Prescriptions: New alprazolam [Xanax] 0.25 mg tablet 0.25 mg PO TID PRN (Reason: anxiety) Qty: 14 RF: 0 No Action lisinopril 2.5 mg tablet 30 mg PO DAILY RF: 0 ibuprofen 200 mg capsule 200 mg PO Q6H RF: 0 bkmgpoipfrjp-Wa-aakp-minerals tablet 1 tab PO DAILY RF: 0 ascorbate calcium (vitamin C) 814 mg/gram powder 1,000 mg PO DAILY RF: 0 potassium 99 mg tablet 99 mg PO DAILY RF: 0 warfarin 10 MG tablet 10 mg PO DAILY RF: 0 levothyroxine 25 MCG tablet 100 mcg PO DAILY RF: 0 metoprolol tartrate 25 MG tablet 50 mg PO BID RF: 0 alprazolam 0.25 MG tablet 0.25 mg PO PRN PRN (Reason: Anxiety) RF: 0 Primary Care Provider: Surya Francisco Referrals: Surya Francisco MD [Primary Care Provider] - 5-7 Days Disposition Disposition: Home, self care
[2021-01-08 18:32] LABS: Bacteria 0 SEEN /hpf (None Seen); Mucous, Urine 0 SEEN /hpf (<or=2+); Squamous Epithelial Cells - UA 0 SEEN /hpf (5-10)
[2021-01-08 18:41] LABS: Color, Urine Yellow (Yellow); Glucose, Dipstick Normal (Normal); Ketone-Dipstick Negative (Negative); Leukocyte Esterase-Dipstick 25 /ul (Negative); Nitrite-Dipstick Negative (Negative); Occult Blood-Urine 250 /ul (Negative); Protein-Dipstick 15 mg/dl (Negative); Urine Bilirubin Dipstick Negative (Negative); Urine Clarity Cloudy (Clear); Urine Urobilinogen Normal (Normal)
[2021-01-08 18:43] LABS: Absolute Lymphocyte Count 1.57 X10^3/uL (0.83-4.51); Absolute Neutrophil Count 5.5 X10^3/uL (2.0-7.7); Basophil# 0.06 X10^3/uL; Basophil% 0.7 % (0-1); Eosinophil# 0.07 X10^3/uL; Eosinophils% 0.9 % (0-5); Hematocrit 42.5 % (37-47); Hemoglobin 13.9 g/dL (12.0-15.0); Lymphocyte # 1.57 X10^3/ul (0.83-4.51); Lymphocyte % 19.4 % (19-41); Mean Corp Hgb Conc 32.7 g/dL (32-36); Mean Corpuscular Hgb 29.5 pg (27.0-32.0); Mean Corpuscular Volume 90.2 fL (81-99); Mean Platelet Vol. 9.9 fl (6.2-12.0); Monocyte# 0.83 X10^3/uL; Monocyte% 10.3 % (0-10); NRBC Flagged by Analyzer 0 % (0-5); Neutrophil # 5.52 X10^3/uL (2.7-7.7); Neutrophil % 68.3 % (47-70); Platelet Count 295 K/mm3 (150-450); RBC Distribution Width CV 13.8 % (11.6-14.6); RBC Distribution Width SD 45.9 fl (35.1-43.9); Red Blood Count 4.71 M/mm3 (4.2-5.4); White Blood Count 8.1 K/mm3 (4.4-11.0)
[2021-01-08] MEDS: ALPRAZolam 0.5 MG Tablet 0.25 MG PO (18:55)
[2021-01-08 19:05] LABS: Red Blood Cells-Urine 50-100 SEEN /hpf (0-5); White Blood Cells 0-5 SEEN /hpf (0-5)
[2021-01-08 19:07] LABS: Anion Gap 5 (5-15); BUN 11 mg/dL (7-18); BUN/Creat Ratio 13.1 RATIO (10-20); Calcium,Total 9.1 mg/dL (8.5-10.1); Chloride 106 mmol/L (98-107); Creatinine, Serum 0.84 mg/dL (0.55-1.02); EST Glomerular Filtration Rate 71 mL/min (>60); Est Glom Filt Rate - Afr Amer 86 mL/min (>60); Estimated Creatinine Clearance 59.74 ml/min; Glucose 113 mg/dL (74-106); Potassium 4.1 mmol/L (3.5-5.1); Sodium Level 140 mmol/L (136-145)
[2021-01-08 19:09] LABS: White Cell Cast 0-5 SEEN /lpf (None Seen)
[2021-01-08 21:01] VITALS: BP 175/112; PULSE 80
== END 2021-01-08 21:03 | disposition home or self-care (01) ==
PROVIDERS: Emergency Provider Emergency Medicine; PCP Family Medicine
DX: F41.9 Anxiety disorder, unspecified (principal); I10 Essential (primary) hypertension; M19.90 Unspecified osteoarthritis, unspecified site; E03.9 Hypothyroidism, unspecified; Z86.718 Personal history of other venous thrombosis and embolism; Z79.01 Long term (current) use of anticoagulants; Z79.899 Other long term (current) drug therapy
CPT/HCPCS: 71045; 80048; 81001; 84484; 85025; 93005; 99285; A4216

== ENCOUNTER 2021-02-03 07:20 | Outpatient (RCR) | payer MEDICARE, OTHER, SELFPAY ==
[2021-02-03 09:50] LABS: Absolute Lymphocyte Count 1.75 X10^3/uL (0.83-4.51); Absolute Neutrophil Count 4.4 X10^3/uL (2.0-7.7); Basophil# 0.05 X10^3/uL; Basophil% 0.7 % (0-1); Eosinophil# 0.13 X10^3/uL; Eosinophils% 1.8 % (0-5); Hematocrit 43.4 % (37-47); Hemoglobin 14.3 g/dL (12.0-15.0); Lymphocyte # 1.75 X10^3/ul (0.83-4.51); Lymphocyte % 24.9 % (19-41); Mean Corp Hgb Conc 32.9 g/dL (32-36); Mean Corpuscular Hgb 29.5 pg (27.0-32.0); Mean Corpuscular Volume 89.5 fL (81-99); Mean Platelet Vol. 10.5 fl (6.2-12.0); Monocyte# 0.69 X10^3/uL; Monocyte% 9.8 % (0-10); NRBC Flagged by Analyzer 0 % (0-5); Neutrophil % 62.7 % (47-70); Platelet Count 281 K/mm3 (150-450); RBC Distribution Width CV 13.6 % (11.6-14.6); RBC Distribution Width SD 44.7 fl (35.1-43.9); Red Blood Count 4.85 M/mm3 (4.2-5.4)
[2021-02-03 10:22] LABS: International Normalized Ratio 2.2; Prothrombin Time (Protime)PT. 23.5 SECONDS (11.7-14.9)
[2021-02-03 10:32] LABS: Hemoglobin A1c 6.8 % (3.8-5.6)
[2021-02-03 10:51] LABS: ALB/GLOB Ratio 0.8 RATIO (0.9-2.4); AST(SGOT) 19 U/L (15-37); Alanine Aminotransfer ALT/SGPT 32 U/L (13-56); Albumin, Serum 3.5 g/dL (3.2-5.0); Alkaline Phosphatase 58 U/L (45-117); Anion Gap 7 (5-15); BUN 28 mg/dL (7-18); Calcium,Total 9.1 mg/dL (8.5-10.1); Chloride 103 mmol/L (98-107); Cholesterol 188 mg/dL (200); EST Glomerular Filtration Rate 58 mL/min (>60); Est Glom Filt Rate - Afr Amer 70 mL/min (>60); Globulin 4.2 g/dL (2.2-4.2); Glucose 119 mg/dL (74-106); High Density Lipoprotein 37 mg/dL; Potassium 3.6 mmol/L (3.5-5.1); Protein, Total 7.7 g/dL (6.4-8.2); Sodium Level 137 mmol/L (136-145); Thyroid Stim Hormone (TSH) 1.21 uIU/mL (0.358-3.74); Triglycerides 228 mg/dL; Very Low Density Lipoprotein 46 mg/dL (5-40)
== END 2021-02-03 18:00 | disposition home or self-care (01) ==
LOC: MTLAB 07:20
PROVIDERS: Family Provider Family Medicine; PCP Family Medicine; Referring Provider Family Medicine; Visit Provider Family Medicine
DX: Z86.718 Personal history of other venous thrombosis and embolism (principal); Z79.01 Long term (current) use of anticoagulants; I10 Essential (primary) hypertension; R73.01 Impaired fasting glucose
CPT/HCPCS: 36415; 80053; 80061; 83036; 84443; 85025; 85610

== ENCOUNTER 2021-02-04 19:24 | Emergency (ER) | payer MEDICARE, OTHER, SELFPAY ==
[2021-02-04 19:24] VITALS: PULSE 89; RESP 25; TEMP 36.7; O2SAT 94; BMI 48.8
[2021-02-04 19:31] VITALS: BP 173/84; PULSE 85; RESP 21; O2SAT 97
--- NOTE | 2021-02-04 19:57 | EKG12_ITS ---
Test Reason : CP Blood Pressure : / mmHG Vent. Rate : 081 BPM Atrial Rate : 081 BPM P-R Int : 192 ms QRS Dur : 136 ms QT Int : 424 ms P-R-T Axes : 040 054 -18 degrees QTc Int : 492 ms Sinus rhythm with frequent Premature ventricular complexes Right bundle branch block T wave abnormality, consider inferior ischemia Abnormal ECG Confirmed by FABIO STARKEY, KAMI ([id number]), managing editor LORI HANLEY ([id number]) on 02/06/2021 10:50:50 AM Referred By: WILDA Confirmed By:KAMI MCCARTHY MD
[2021-02-04 20:04] LABS: Absolute Lymphocyte Count 2.39 X10^3/uL (0.83-4.51); Absolute Neutrophil Count 6.4 X10^3/uL (2.0-7.7); Basophil# 0.06 X10^3/uL; Basophil% 0.6 % (0-1); Eosinophil# 0.15 X10^3/uL; Eosinophils% 1.5 % (0-5); Hematocrit 43.9 % (37-47); Hemoglobin 14.4 g/dL (12.0-15.0); Lymphocyte # 2.39 X10^3/ul (0.83-4.51); Lymphocyte % 23.6 % (19-41); Mean Corp Hgb Conc 32.8 g/dL (32-36); Mean Corpuscular Hgb 29.9 pg (27.0-32.0); Mean Corpuscular Volume 91.3 fL (81-99); Mean Platelet Vol. 10.9 fl (6.2-12.0); Monocyte# 1.11 X10^3/uL; NRBC Flagged by Analyzer 0 % (0-5); Neutrophil # 6.39 X10^3/uL (2.7-7.7); Neutrophil % 63.1 % (47-70); Platelet Count 269 K/mm3 (150-450); RBC Distribution Width CV 13.5 % (11.6-14.6); RBC Distribution Width SD 45.8 fl (35.1-43.9); Red Blood Count 4.81 M/mm3 (4.2-5.4); White Blood Count 10.1 K/mm3 (4.4-11.0)
--- NOTE | 2021-02-04 20:06 | RAD_ITS ---
INDICATION: chest pain EXAMINATION/TECHNIQUE: X-RAY - XR Chest 1 View COMPARISON: 01/08/2021. FINDINGS: Left basilar atelectasis. The lungs are otherwise clear. The cardiomediastinal silhouette is unremarkable. Interval resolution of trace bilateral pleural effusions. No pneumothorax. No acute osseous abnormalities. RAD/Chest 1 View (Portable) IMPRESSION: No acute radiographic abnormalities. Interval resolution of trace bilateral pleural effusions. Left basilar atelectasis. Electronically Signed: Pramod Chavira MD at 20:39 EDT Tel , Service support ,
[2021-02-04 20:09] LABS: International Normalized Ratio 1.9
[2021-02-04 20:18] LABS: Anion Gap 8 (5-15); BUN 32 mg/dL (7-18); BUN/Creat Ratio 29.1 RATIO (10-20); Chloride 103 mmol/L (98-107); EST Glomerular Filtration Rate 52 mL/min (>60); Est Glom Filt Rate - Afr Amer 63 mL/min (>60); Estimated Creatinine Clearance 45.62 ml/min; Glucose 117 mg/dL (74-106); Potassium 3.5 mmol/L (3.5-5.1); Sodium Level 138 mmol/L (136-145); Troponin-I HS 6.9 pg/mL (3.0-53.7)
[2021-02-04 22:24] LABS: Troponin-I HS 10.3 pg/mL (3.0-53.7)
[2021-02-04 22:37] VITALS: BP 186/92; PULSE 69; RESP 18; O2SAT 96
--- NOTE | 2021-02-04 23:20 | ED.VIS.CHEST ---
HPI History of Present Illness Chief Complaint: Chest Pain Informant: patient Narrative Narrative: Patient is 70-year-old female with history of anxiety, hypertension, DVT/PE on Coumadin, and prediabetes presenting with chest discomfort. Patient states all months she has been having pressure in her chest and not feeling good. She does with past few days she has been having indigestion is been taking Tums. She is on acid taste in her mouth. Tonight she had worsening pressure in her chest. It lasted for about 30 minutes. She states is currently resolved. She notes she was sweaty at the time and describes as diaphoresis. She had her INR checked yesterday and was 2.2. She does have a family history of heart disease. Patient states that she would never want a stress test or cardiac catheterization. She states as far as her treatments go she always just wants to be comfortable as she is getting older. She was recently started on chlorthalidone as well as increase her lisinopril for hypertension. No other complaints at this time. [facility] Medical History (Updated 02/04/21 @ 23:[address] Robyn Lebron, ) Anxiety Arthritis Back pain Difficulty balancing History of DVT (deep vein thrombosis) history of ivc filter history of liver infection History of UTI Hypertension Hypothyroidism Knee pain Limb weakness Liver disease Neck pain Osteoarthritis Pulmonary embolism Shortness of breath Home Medications levothyroxine 100 mcg PO DAILY 12/04/15 [History Last Taken 02/22/17] metoprolol tartrate 50 mg PO BID 12/04/15 [History Last Taken 02/22/17] warfarin 10 mg PO DAILY 12/04/15 [History Last Taken 02/22/17] alprazolam 0.25 mg PO PRN PRN 04/19/16 [History Last Taken 02/22/17] ascorbate calcium (vitamin C) 814 mg/gram oral powder 1,000 mg PO DAILY g 01/17/19 [History Last Taken Unknown] ibuprofen 200 mg capsule 400 mg PO Q6H 01/17/19 [History Last Taken Unknown] lisinopril 2.5 mg tablet 40 mg PO DAILY 01/17/19 [History Last Taken Unknown] suiagvlagiaa-Ly-wzrc-minerals 1 tab PO DAILY tab 01/17/19 [History Last Taken Unknown] potassium 99 mg tablet 99 mg PO DAILY 01/17/19 [History Last Taken Unknown] alprazolam [Xanax] 0.25 mg PO TID PRN #14 tab 01/08/21 [Rx Last Taken Unknown] chlorthalidone 25 mg PO DAILY 02/04/21 [History Last Taken Unknown] omeprazole 20 mg PO DAILY #30 cap 02/04/21 [Rx Last Taken Unknown] Allergy/AdvReac Type Severity Reaction Status Date / Time Sulfa (Sulfonamide Allergy Severe Anaphylaxis Verified 01/08/21 17:50 Antibiotics) acetaminophen [From Tylenol] Allergy Anaphylaxis Verified 01/08/21 17:50 citalopram hydrobromide Allergy Other Verified 01/08/21 17:50 [From Celexa] naproxen Allergy Shortness Verified 01/08/21 17:50 of breath sertraline HCl [From Zoloft] Allergy Shortness Verified 01/08/21 17:50 of breath lorazepam [From Ativan] AdvReac Mild Agitation Verified 01/08/21 17:50 meclizine HCl [From Antivert] AdvReac Mild rapid Verified 01/08/21 17:50 hearth beat Surgical History H/O colectomy H/O umbilical hernia repair History of cholecystectomy Social History Smoking Status: Never smoker alcohol intake: never ROS ROS ED Constitutional Constitutional ED: Denies fever(s) or subjective Eyes Eyes: Denies blurry vision or change in vision ENT ENT ED: Denies ear pain or rhinorrhea Cardiovascular Cardiovascular: Reports chest pain Respiratory/Chest Respiratory/Chest: Denies cough, dyspnea or dyspnea on exertion Gastrointestinal Gastrointestinal: Denies abdominal pain, nausea or vomiting Genitourinary Genitourinary ED: Denies dysuria or hematuria Musculoskeletal Musculoskeletal: Denies myalgias Integumentary Denies rash Neurologic Neurologic: Denies headache(s) or weakness Psychiatric Psychiatric: Denies anxiety or depression EXAM Physical Exam Const Vital Signs: 02/04/21 19:24 02/04/21 19:27 02/04/21 19:31 Temperature 98.1 F Temperature Source Oral Pulse Rate 89 85 Respiratory Rate 25 H 21 H Respiratory Effort Normal Respiratory Pattern Normal Blood Pressure 173/84 H Blood Pressure Mean 113 Pulse Ox 94 97 Oxygen Delivery Method Room Air Room Air 02/04/21 20:01 02/04/21 22:37 02/04/21 23:39 Temperature Temperature Source Pulse Rate 69 83 Respiratory Rate 18 16 Respiratory Effort Respiratory Pattern Blood Pressure 186/92 H 176/61 H Blood Pressure Mean 123 Pulse Ox 96 96 Oxygen Delivery Method Room Air Room Air Positive well nourished and well developed General Appearance ED: well developed HEENT Reports moist mucous membranes normocephalic Mouth ED: Yes moist mucous membranes normal Eyes PERRL and EOMs intact bilaterally General Eye ED: Yes normal appearance of both eyes Pupil: PERRL Neck supple and no JVD Lymph Lymphatic: no lymphadenopathy noted Chest Wall inspection of chest normal and palpation of chest normal Resp normal respiratory effort and normal air movement Cardio regular rate and regular rhythm Peripheral Pulses: pulses 2+ throughout GI normal to inspection, nondistended, normoactive bowel sounds, non-tender and non-distended Back/Spine no CVA tenderness and normal to inspection Extremity normal to inspection and full ROM Neuro oriented x3, moves all extremities and no focal motor deficits Sensorium / Orientation: awake Psych mental status grossly normal and thought process normal Skin no rashes or lesions noted and no petechiae MDM MDM MDM Narrative Medical decision making narrative: Patient evaluated for chest pressure and not feeling right. Her symptoms were going on for couple days. She appears nontoxic no acute distress. Patient is on Coumadin for DVT history. Her INR is 1.9 however it was 2.2 yesterday. I do not suspect a PE as a cause of her symptoms. Her troponin is normal range is 6.9 and on repeat it is 10.3. Chest x-ray does not show any acute process. No acute ischemic changes on EKG. Patient states that even if there was something wrong with her heart she would not want stress test, cardiac catheterization or stenting/any intervention. Given that she would not want any intervention I do not think she requires admission for further cardiac evaluation. Patient will follow up with her PCP. She is strongly encouraged to reconsider her stance at least on a stress test. She is also counseled that possibly she could have a GI cause of her symptoms and she is started on omeprazole. Patient counseled on return precautions. She verbalizes agreement understanding this plan. She is discharged home in stable condition. She will follow up with her PCP for her INR level. Lab Data Attestation: I reviewed the patient's lab results. Labs: Laboratory Results - last 24 hr 02/04/21 02/04/21 02/04/21 19:39 19:39 19:39 WBC 10.1 RBC 4.81 Hgb 14.4 Hct 43.9 MCV 91.3 MCH 29.9 MCHC 32.8 RDW Std Deviation 45.8 H RDW Coeff of Cathleen 13.5 Plt Count 269 MPV 10.9 Immature Gran % (Auto) 0.200 Neut % (Auto) 63.1 Lymph % (Auto) 23.6 Harris % (Auto) 11.0 H Eos % (Auto) 1.5 Baso % (Auto) 0.6 Absolute Neuts (auto) 6.4 Absolute Lymphs (auto) 2.39 Nucleated RBC % 0 PT 21.0 H INR 1.9 Sodium 138 Potassium 3.5 Chloride 103 Carbon Dioxide 27.0 Anion Gap 8 BUN 32 H Creatinine 1.10 H Estim Creat Clear Calc 45.62 Est GFR (MDRD) Af Amer 63 Est GFR (MDRD) Non-Af 52 L BUN/Creatinine Ratio 29.1 H Glucose 117 H Calcium 10.0 Troponin I High Sens 6.9 02/04/21 21:13 WBC RBC Hgb Hct MCV MCH MCHC RDW Std Deviation RDW Coeff of Cathleen Plt Count MPV Immature Gran % (Auto) Neut % (Auto) Lymph % (Auto) Harris % (Auto) Eos % (Auto) Baso % (Auto) Absolute Neuts (auto) Absolute Lymphs (auto) Nucleated RBC % PT INR Sodium Potassium Chloride Carbon Dioxide Anion Gap BUN Creatinine Estim Creat Clear Calc Est GFR (MDRD) Af Amer Est GFR (MDRD) Non-Af BUN/Creatinine Ratio Glucose Calcium Troponin I High Sens 10.3 Radiography Chest X-Ray - ED: 1 View, Read by ED Physician, Read by Radiologist and No Acute Disease Diagnostic Testing: Radiology Impression Chest X-Ray 02/04/21 20:06 IMPRESSION: No acute radiographic abnormalities. Interval resolution of trace bilateral pleural effusions. Left basilar atelectasis. Electronically Signed: Pramod Chavira MD at 20:39 EDT Tel , Service support , Rhythm Strip Rhythm Strip: Sinus Rhythm Rate: 81 Ectopy: PVC(s) EKG Initial EKG: Attestation: I personally reviewed and interpreted this EKG as follows: Comments: Sinus rhythm at a rate of 81 with frequent PVCs Right bundle branch block Normal axis QRS [address] segments No change made to prior EKG on 01/08/2021 Discharge Plan Triage Chief Complaint: Chest Pain ED Provider: Robyn Lebron Dx/Rx/DC Orders Clinical Impression: Chest pain, Subtherapeutic international normalized ratio (INR) Instructions: ED Chest Pain, Uncertain Cause Prescriptions: New omeprazole 20 mg capsule,delayed release(DR/EC) 20 mg PO DAILY Qty: 30 RF: 0 No Action lisinopril 2.5 mg tablet 40 mg PO DAILY RF: 0 ibuprofen 200 mg capsule 400 mg PO Q6H RF: 0 pqbzmegytzvy-Uh-svzh-minerals tablet 1 tab PO DAILY RF: 0 ascorbate calcium (vitamin C) 814 mg/gram powder 1,000 mg PO DAILY RF: 0 potassium 99 mg tablet 99 mg PO DAILY RF: 0 warfarin 10 MG tablet 10 mg PO DAILY RF: 0 levothyroxine 25 MCG tablet 100 mcg PO DAILY RF: 0 metoprolol tartrate 25 MG tablet 50 mg PO BID RF: 0 alprazolam 0.25 MG tablet 0.25 mg PO PRN PRN (Reason: Anxiety) RF: 0 alprazolam [Xanax] 0.25 mg tablet 0.25 mg PO TID PRN (Reason: anxiety) Qty: 14 RF: 0 chlorthalidone 25 mg tablet 25 mg PO DAILY RF: 0 Primary Care Provider: Surya Francisco Referrals: Sruya Francisco MD [Primary Care Provider] - Disposition Disposition: Home, Self Care Discharge Date/Time: 02/04/21 23:40
[2021-02-04 23:39] VITALS: BP 176/61; PULSE 83; RESP 16; O2SAT 96
== END 2021-02-04 23:40 | disposition home or self-care (01) ==
PROVIDERS: Emergency Provider Emergency Medicine; PCP Family Medicine
DX: R07.89 Other chest pain (principal); R79.1 Abnormal coagulation profile; F41.9 Anxiety disorder, unspecified; I10 Essential (primary) hypertension; R73.03 Prediabetes; M19.90 Unspecified osteoarthritis, unspecified site; E03.9 Hypothyroidism, unspecified; Z86.718 Personal history of other venous thrombosis and embolism; Z79.01 Long term (current) use of anticoagulants; Z79.899 Other long term (current) drug therapy
CPT/HCPCS: 71045; 80048; 84484; 85025; 85610; 93005; 99284; A4216

== ENCOUNTER 2021-02-14 09:49 | Emergency (ER) | payer MEDICARE, OTHER, SELFPAY ==
[2021-02-14 09:50] VITALS: BP 168/109; PULSE 91; RESP 14; TEMP 36.1; O2SAT 97; BMI 46.2
--- NOTE | 2021-02-14 10:05 | CT_ITS ---
STUDY: CT ABDOMEN AND PELVIS WITH CONTRAST REASON FOR EXAM: Female, 70 years old. Abdominal pain. Nausea and vomiting. History of prior hernia repair. RADIATION DOSAGE (If Supplied By Facility): CTDIvol = ( 34.99 ) mGy, DLP = ( 2092.38 ) mGycm TECHNIQUE: Transaxial images were obtained from the dome of the diaphragm to the symphysis pubis without oral contrast. IV 100mL Isovue-300 was administered. Sagittal and coronal images were reconstructed. Individualized dose optimization techniques were used for this CT. COMPARISON: Comparison is made with prior study dated 04/20/2016. FINDINGS: Minimal degree of increased markings at the lung bases slightly more prominent on the right side suggestive of a atelectasis and/or scarring. Surgical clips are seen in the left axillary region. The visualized portions of the heart are within normal limits. There is decreased attenuation of the liver consistent with steatosis. There are surgical clips in the gallbladder fossa consistent with a prior cholecystectomy. Surgical clips are seen along the lateral aspect of the spleen. The previously seen cystic density has been resected along the lateral aspect of the spleen. Normal pancreas. Normal bilateral adrenal glands. Normal right kidney. Normal left kidney. Gastric distention. There are dilated loops of the small intestine with a non-distended colon consistent with a small bowel obstruction. This is due to a large right lateral ventricle hernia. The neck of the hernia measures 12 cm. There are multiple colonic diverticula consistent with diverticulosis. Normal abdominal aorta. There is an IVC filter in place. Normal retroperitoneum. Normal urinary bladder. There are diffuse degenerative changes of the visualized lumbar spine. CT/Abdomen/Pelvis W IV Cont ONLY IMPRESSION: Large right paraumbilical hernia containing dilated small bowel loops resulting in small bowel obstruction and gastric dilatation. Fatty infiltration of the liver. Mild degree of increased markings at the lung bases slightly more prominent on the right side. Electronically Signed: Rafael Iraheta MD at 11:19 EDT , Service support ,
--- NOTE | 2021-02-14 10:09 | EX.ED.DYSGE1 ---
HPI History of Present Illness Chief Complaint: Abd Pain Informant: patient Narrative Narrative: 70-year-old female presents with abdominal pain and vomiting. Symptoms began late last evening. She states it reminds her when she had a umbilical hernia. She notes several hernia repairs and a total colectomy due to infection. Her total colectomy was performed in [place] in 2006. She is also status post cholecystectomy she did not require an ostomy bag. She notes no change in her bowel movements. Last bowel movement was during the night. No fevers. No known bad food or water. No one else sick at home. She states that she feels bloated. [facility] Medical History (Updated 02/14/21 @ 14:[address] Kaveh Etienne, ) Anxiety Arthritis Back pain Difficulty balancing History of DVT (deep vein thrombosis) history of ivc filter history of liver infection History of UTI Hypertension Hypothyroidism Knee pain Limb weakness Liver disease Neck pain Osteoarthritis Pulmonary embolism Shortness of breath Home Medications levothyroxine 100 mcg PO DAILY 12/04/15 [History Last Taken 02/22/17] metoprolol tartrate 50 mg PO BID 12/04/15 [History Last Taken 02/22/17] warfarin 10 mg PO DAILY 12/04/15 [History Last Taken 02/22/17] alprazolam 0.25 mg PO PRN PRN 04/19/16 [History Last Taken 02/22/17] ascorbate calcium (vitamin C) 814 mg/gram oral powder 1,000 mg PO DAILY g 01/17/19 [History Last Taken Unknown] ibuprofen 200 mg capsule 400 mg PO Q6H 01/17/19 [History Last Taken Unknown] lisinopril 2.5 mg tablet 40 mg PO DAILY 01/17/19 [History Last Taken Unknown] kxxrjorrwzdm-Po-yosr-minerals 1 tab PO DAILY tab 01/17/19 [History Last Taken Unknown] potassium 99 mg tablet 99 mg PO DAILY 01/17/19 [History Last Taken Unknown] alprazolam [Xanax] 0.25 mg PO TID PRN #14 tab 01/08/21 [Rx Last Taken Unknown] chlorthalidone 25 mg PO DAILY 02/04/21 [History Last Taken Unknown] omeprazole 20 mg PO DAILY #30 cap 02/04/21 [Rx Last Taken Unknown] Allergy/AdvReac Type Severity Reaction Status Date / Time Sulfa (Sulfonamide Allergy Severe Anaphylaxis Verified 02/14/21 09:50 Antibiotics) acetaminophen [From Tylenol] Allergy Anaphylaxis Verified 02/14/21 09:50 citalopram hydrobromide Allergy Other Verified 02/14/21 09:50 [From Celexa] naproxen Allergy Shortness Verified 02/14/21 09:50 of breath sertraline HCl [From Zoloft] Allergy Shortness Verified 02/14/21 09:50 of breath lorazepam [From Ativan] AdvReac Mild Agitation Verified 02/14/21 09:50 meclizine HCl [From Antivert] AdvReac Mild rapid Verified 02/14/21 09:50 hearth beat Surgical History H/O colectomy H/O umbilical hernia repair History of cholecystectomy Social History Smoking Status: Never smoker alcohol intake: never ROS ROS ED Constitutional Constitutional ED: Denies chills or weight loss Eyes Eyes: Denies change in vision or diplopia ENT ENT ED: Denies ear pain, rhinorrhea or sore throat Cardiovascular Cardiovascular: Denies chest pain, orthopnea, palpitations or racing heartbeat Respiratory/Chest Respiratory/Chest: Denies cough, dyspnea or orthopnea Gastrointestinal Gastrointestinal: Reports abdominal pain, nausea and vomiting; Denies diarrhea Genitourinary Genitourinary ED: Denies dysuria, hematuria or urinary frequency Musculoskeletal Musculoskeletal: Denies arthralgias or myalgias Integumentary Denies abscess or rash Neurologic Neurologic: Denies headache(s) or weakness Psychiatric Psychiatric: Denies anxiety, depression, suicidal ideation or suicidal thoughts Endocrine Endocrinology: Denies polydipsia, polyphagia or polyuria Allergic/Immunologic Allergic/Immunologic ED: Denies mouth swelling, tongue swelling or urticaria EXAM Physical Exam Const Vital Signs: 02/14/21 09:50 02/14/21 14:06 Temperature 97 F L Temperature Source Temporal Pulse Rate 91 83 Respiratory Rate 14 16 Blood Pressure 168/109 H 166/86 H Blood Pressure Mean 128 112 Pulse Ox 97 99 Oxygen Delivery Method Room Air Room Air Positive well nourished, well developed and obese General Appearance ED: well developed Nutritional Appearance: obese HEENT Reports normocephalic, head/scalp atraumatic and moist mucous membranes Eyes PERRL and EOMs intact bilaterally Neck no lymphadenopathy, supple and no JVD Resp normal respiratory effort and clear to auscultation bilaterally Cardio regular rate, regular rhythm and no murmurs GI GI Narrative: Examination is limited due to body habitus. She does report tenderness in the epigastric region Palpation: soft and tender Back/Spine no CVA tenderness and normal ROM Extremity normal to inspection General Extremety ED: Negative for edema General Extremity: Negative for edema Neuro oriented x3 and CN's II-XII intact bilaterally Sensorium / Orientation: alert Motor Exam: strength 5/5 throughout Psych mental status grossly normal Mood & Affect: Negative for depressed or tearful Skin no rashes or lesions noted and no wounds MDM MDM MDM Narrative Medical decision making narrative: Basic blood work was significant for lipase of 423. Glucose 156. CT abdomen pelvis demonstrates a large periumbilical hernia whose neck measures approximately 12 cm. This is resulting in small bowel obstruction and gastric distention. An NG tube was placed with greater than 1 L of fluid removed. She wishes to go to [place] to have her previous surgeon operate on her. I spoke with the on-call surgeon Dr. Elian Rodriguez. He recommends the patient go to [facility]. Beds are very limited at that campus. I discussed with the patient she does not want to go to a different facility. We will work with the transfer line at this time. I spoke with the surgical quarterback at 1415 hrs. and is accepted the patient. We awaited bed assignment. Lab Data Attestation: I reviewed the patient's lab results. Labs: Laboratory Results - last 24 hr 02/14/21 02/14/21 10:15 10:15 WBC 7.1 RBC 5.10 Hgb 15.0 Hct 45.0 MCV 88.2 MCH 29.4 MCHC 33.3 RDW Std Deviation 43.4 RDW Coeff of Cathleen 13.2 Plt Count 258 MPV 10.2 Immature Gran % (Auto) 0.400 Neut % (Auto) 80.6 H Lymph % (Auto) 9.1 L [place] % (Auto) 9.2 Eos % (Auto) 0.4 Baso % (Auto) 0.3 Absolute Neuts (auto) 5.7 Absolute Lymphs (auto) 0.64 L Nucleated RBC % 0 Sodium 136 Potassium 3.2 L Chloride 99 Carbon Dioxide 29.0 Anion Gap 8 BUN 23 H Creatinine 0.85 Estim Creat Clear Calc 59.03 Est GFR (MDRD) Af Amer 84 Est GFR (MDRD) Non-Af 70 BUN/Creatinine Ratio 27.0 H Glucose 156 H Calcium 9.0 Total Bilirubin 0.50 AST 50 H ALT 90 H Alkaline Phosphatase 82 Total Protein 8.2 Albumin 3.6 Globulin 4.6 H Albumin/Globulin Ratio 0.8 L Lipase 423 H Radiography Diagnostic Testing: Radiology Impression Abdomen/Pelvis CT 02/14/21 10:05 IMPRESSION: Large right paraumbilical hernia containing dilated small bowel loops resulting in small bowel obstruction and gastric dilatation. Fatty infiltration of the liver. Mild degree of increased markings at the lung bases slightly more prominent on the right side. Electronically Signed: Rafael Iraheta MD at 11:19 EDT , Service support , KUB X-Ray 02/14/21 12:15 IMPRESSION: The tip of the NG tube is at the gastroesophageal junction. Electronically Signed: Rafael Iraheta MD at 12:57 EDT , Service support , Discharge Plan Triage Chief Complaint: Abd Pain ED Provider: Kaveh Etienne Dx/Rx/DC Orders Clinical Impression: Periumbilical hernia, Small bowel obstruction Prescriptions: No Action lisinopril 2.5 mg tablet 40 mg PO DAILY RF: 0 ibuprofen 200 mg capsule 400 mg PO Q6H RF: 0 jwflkbdqysly-Hu-umjt-minerals tablet 1 tab PO DAILY RF: 0 ascorbate calcium (vitamin C) 814 mg/gram powder 1,000 mg PO DAILY RF: 0 potassium 99 mg tablet 99 mg PO DAILY RF: 0 warfarin 10 MG tablet 10 mg PO DAILY RF: 0 levothyroxine 25 MCG tablet 100 mcg PO DAILY RF: 0 metoprolol tartrate 25 MG tablet 50 mg PO BID RF: 0 alprazolam 0.25 MG tablet 0.25 mg PO PRN PRN (Reason: Anxiety) RF: 0 alprazolam [Xanax] 0.25 mg tablet 0.25 mg PO TID PRN (Reason: anxiety) Qty: 14 RF: 0 chlorthalidone 25 mg tablet 25 mg PO DAILY RF: 0 omeprazole 20 mg capsule,delayed release(DR/EC) 20 mg PO DAILY Qty: 30 RF: 0 Primary Care Provider: Surya Francisco Referrals: Surya Francisco MD [Primary Care Provider] - Disposition Disposition: Acute Care Hospital Discharge Location: [facility]
[2021-02-14] MEDS: 0.9% Normal Saline 1,000 ML 1000 ML IV (10:21)
[2021-02-14] MEDS: Ondansetron 4 MG/2 ML Vial IV (10:21)
[2021-02-14 10:34] LABS: Absolute Lymphocyte Count 0.64 X10^3/uL (0.83-4.51); Absolute Neutrophil Count 5.7 X10^3/uL (2.0-7.7); Basophil# 0.02 X10^3/uL; Basophil% 0.3 % (0-1); Eosinophil# 0.03 X10^3/uL; Eosinophils% 0.4 % (0-5); Lymphocyte # 0.64 X10^3/ul (0.83-4.51); Lymphocyte % 9.1 % (19-41); Mean Corp Hgb Conc 33.3 g/dL (32-36); Mean Corpuscular Hgb 29.4 pg (27.0-32.0); Mean Corpuscular Volume 88.2 fL (81-99); Mean Platelet Vol. 10.2 fl (6.2-12.0); Monocyte# 0.65 X10^3/uL; Monocyte% 9.2 % (0-10); NRBC Flagged by Analyzer 0 % (0-5); Neutrophil # 5.68 X10^3/uL (2.7-7.7); Neutrophil % 80.6 % (47-70); Platelet Count 258 K/mm3 (150-450); RBC Distribution Width CV 13.2 % (11.6-14.6); RBC Distribution Width SD 43.4 fl (35.1-43.9); White Blood Count 7.1 K/mm3 (4.4-11.0)
[2021-02-14 10:44] LABS: ALB/GLOB Ratio 0.8 RATIO (0.9-2.4); AST(SGOT) 50 U/L (15-37); Alanine Aminotransfer ALT/SGPT 90 U/L (13-56); Albumin, Serum 3.6 g/dL (3.2-5.0); Alkaline Phosphatase 82 U/L (45-117); Anion Gap 8 (5-15); BUN 23 mg/dL (7-18); Chloride 99 mmol/L (98-107); Creatinine, Serum 0.85 mg/dL (0.55-1.02); EST Glomerular Filtration Rate 70 mL/min (>60); Est Glom Filt Rate - Afr Amer 84 mL/min (>60); Estimated Creatinine Clearance 59.03 ml/min; Globulin 4.6 g/dL (2.2-4.2); Glucose 156 mg/dL (74-106); Lipase 423 U/L (73-393); Potassium 3.2 mmol/L (3.5-5.1); Protein, Total 8.2 g/dL (6.4-8.2); Sodium Level 136 mmol/L (136-145)
--- NOTE | 2021-02-14 12:15 | RAD_ITS ---
STUDY: X-RAY - ABDOMEN/PELVIS REASON FOR EXAM: Female, 70 years old. NG Insertion TECHNIQUE: Single AP view of the abdomen / pelvis. COMPARISON: None. FINDINGS: The tip of the nasogastric tube is at the gastroesophageal junction. Elevation of the right hemidiaphragm with mild increased markings at the lung bases. RAD/Abdomen Single View (Portable) IMPRESSION: The tip of the NG tube is at the gastroesophageal junction. Electronically Signed: Rafael Iraheta MD at 12:57 EDT , Service support ,
[2021-02-14 14:06] VITALS: BP 166/86; PULSE 83; RESP 16; O2SAT 99
[2021-02-14 16:16] VITALS: BP 148/87; PULSE 87; RESP 18; O2SAT 99
[2021-02-14] MEDS: 0.9% Normal Saline 1,000 ML 150 ML IV (17:08)
[2021-02-14] MEDS: BENZOCAINE/MENTHOL 1 LOZENGE MUCOUS MEM (17:08)
[2021-02-14 20:03] VITALS: BP 154/62; PULSE 85; RESP 18; O2SAT 92
[2021-02-14] MEDS: Morphine 2 MG/ML Syringe IV (22:20)
[2021-02-14 22:23] VITALS: BP 161/62; PULSE 101; RESP 20; TEMP 36.6; O2SAT 93
== END 2021-02-14 22:58 | disposition short-term general hospital (02) ==
PROVIDERS: Emergency Provider Emergency Medicine; PCP Family Medicine
DX: K56.609 Unspecified intestinal obstruction, unspecified as to partial versus complete obstruction (principal); K42.9 Umbilical hernia without obstruction or gangrene; Z90.49 Acquired absence of other specified parts of digestive tract; F41.9 Anxiety disorder, unspecified; M19.90 Unspecified osteoarthritis, unspecified site; I10 Essential (primary) hypertension; E03.9 Hypothyroidism, unspecified; Z86.718 Personal history of other venous thrombosis and embolism; Z79.01 Long term (current) use of anticoagulants; Z79.899 Other long term (current) drug therapy
CPT/HCPCS: 74018; 74177; 80053; 83690; 85025; 96361; 96374; 96375; 99285; J7030; Q9967; A4216; J2405

== ENCOUNTER 2021-02-28 07:07 | Outpatient (RCR) | payer MEDICARE, OTHER, SELFPAY ==
[2021-02-21 07:35] LABS: INR Fingerstick 2.3; Prothrombin Time Fingerstick 25.8 SEC (11.9-14.4)
[2021-02-28 07:25] LABS: INR Fingerstick 2.6; Prothrombin Time Fingerstick 29.4 SEC (11.9-14.4)
== END 2021-02-28 18:00 | disposition home or self-care (01) ==
LOC: MTLAB 07:07
PROVIDERS: Family Provider Family Medicine; PCP Family Medicine; Referring Provider Family Medicine; Visit Provider Family Medicine
DX: Z86.718 Personal history of other venous thrombosis and embolism (principal); Z79.01 Long term (current) use of anticoagulants
CPT/HCPCS: 36416; 85610

== ENCOUNTER 2021-03-31 07:22 | Outpatient (RCR) | payer MEDICARE, OTHER, SELFPAY ==
[2021-03-31 07:36] LABS: INR Fingerstick 3.1; Prothrombin Time Fingerstick 34.6 SEC (11.9-14.4)
== END 2021-03-31 18:00 | disposition home or self-care (01) ==
LOC: MTLAB 07:22
PROVIDERS: Family Provider Family Medicine; PCP Internal Medicine; Referring Provider Internal Medicine; Visit Provider Internal Medicine
DX: Z86.718 Personal history of other venous thrombosis and embolism (principal); Z79.01 Long term (current) use of anticoagulants
CPT/HCPCS: 36416; 85610

== ENCOUNTER 2021-04-09 07:22 | Outpatient (RCR) | payer MEDICARE, OTHER, SELFPAY ==
[2021-04-09 01:24] VITALS: BMI 46.2
[2021-04-09 07:41] LABS: INR Fingerstick 2.8; Prothrombin Time Fingerstick 30.9 SEC (11.9-14.4)
== END 2021-04-09 18:00 | disposition home or self-care (01) ==
LOC: MTLAB 07:22
PROVIDERS: Family Provider Family Medicine; PCP Internal Medicine; Referring Provider Internal Medicine; Visit Provider Internal Medicine
DX: I82.409 Acute embolism and thrombosis of unspecified deep veins of unspecified lower extremity (principal); Z79.01 Long term (current) use of anticoagulants
CPT/HCPCS: 36416; 85610

== ENCOUNTER 2021-05-09 07:10 | Outpatient (RCR) | payer MEDICARE, OTHER, SELFPAY ==
[2021-05-09 02:00] VITALS: BMI 46.2
[2021-05-09 07:21] LABS: INR Fingerstick 2.5; Prothrombin Time Fingerstick 27.9 SEC (11.9-14.4)
== END 2021-06-08 18:00 | disposition home or self-care (01) ==
LOC: MTLAB 07:10
PROVIDERS: Family Provider Family Medicine; PCP Internal Medicine; Referring Provider Internal Medicine; Visit Provider Internal Medicine
DX: I82.409 Acute embolism and thrombosis of unspecified deep veins of unspecified lower extremity (principal); Z79.01 Long term (current) use of anticoagulants
CPT/HCPCS: 36416; 85610

== ENCOUNTER 2021-07-24 07:35 | Outpatient (RCR) | payer MEDICARE, OTHER, SELFPAY ==
[2021-06-08 20:38] VITALS: BMI 46.2
[2021-07-09 08:21] LABS: INR Fingerstick 1.8
[2021-07-24 07:51] LABS: INR Fingerstick 2.1
== END 2021-08-09 18:00 | disposition home or self-care (01) ==
LOC: MTLAB 07:35
PROVIDERS: Family Provider Family Medicine; PCP Internal Medicine; Referring Provider Internal Medicine; Visit Provider Internal Medicine
DX: I82.409 Acute embolism and thrombosis of unspecified deep veins of unspecified lower extremity (principal); Z79.01 Long term (current) use of anticoagulants
CPT/HCPCS: 36416; 85610

== ENCOUNTER 2021-08-27 09:24 | Outpatient (RCR) | payer MEDICARE, OTHER, SELFPAY ==
[2021-08-10 18:27] VITALS: BMI 46.2
[2021-08-27 09:40] LABS: INR Fingerstick 1.8; Prothrombin Time Fingerstick 21.2 SEC (11.9-14.4)
== END 2021-09-08 18:00 | disposition home or self-care (01) ==
LOC: MTLAB 09:24
PROVIDERS: Family Provider Family Medicine; PCP Internal Medicine; Referring Provider Internal Medicine; Visit Provider Internal Medicine
DX: I82.409 Acute embolism and thrombosis of unspecified deep veins of unspecified lower extremity (principal)
CPT/HCPCS: 36416; 85610

== ENCOUNTER 2021-10-02 13:10 | Outpatient (RCR) | payer MEDICARE, OTHER, SELFPAY ==
[2021-09-09 01:47] VITALS: BMI 46.2
[2021-09-22 14:46] LABS: INR Fingerstick 3.3
[2021-10-02 13:31] LABS: INR Fingerstick 2.4; Prothrombin Time Fingerstick 27.7 SEC (11.9-14.4)
== END 2021-10-02 23:59 | disposition home or self-care (01) ==
LOC: MTLAB 13:10
PROVIDERS: Family Provider Family Medicine; PCP Internal Medicine; Referring Provider Internal Medicine; Visit Provider Internal Medicine
DX: I82.409 Acute embolism and thrombosis of unspecified deep veins of unspecified lower extremity (principal)
CPT/HCPCS: 36416; 85610

== ENCOUNTER 2021-10-31 08:38 | Outpatient (RCR) | payer MEDICARE, OTHER, SELFPAY ==
[2021-10-07 10:20] VITALS: BMI 46.2
[2021-10-31 08:56] LABS: INR Fingerstick 2.5
== END 2021-11-06 18:00 | disposition home or self-care (01) ==
LOC: MTLAB 08:38
PROVIDERS: Family Provider Family Medicine; PCP Internal Medicine; Referring Provider Internal Medicine; Visit Provider Internal Medicine
DX: I82.409 Acute embolism and thrombosis of unspecified deep veins of unspecified lower extremity (principal)
CPT/HCPCS: 36416; 85610

== ENCOUNTER 2021-12-01 07:08 | Outpatient (RCR) | payer MEDICARE, OTHER, SELFPAY ==
[2021-11-07 03:03] VITALS: BMI 46.2
[2021-12-01 07:20] LABS: INR Fingerstick 1.7; Prothrombin Time Fingerstick 20.9 SEC (11.7-14.9)
== END 2021-12-01 18:00 | disposition home or self-care (01) ==
LOC: MTLAB 07:08
PROVIDERS: Family Provider Family Medicine; PCP Internal Medicine; Referring Provider Internal Medicine; Visit Provider Internal Medicine
DX: I82.409 Acute embolism and thrombosis of unspecified deep veins of unspecified lower extremity (principal)
CPT/HCPCS: 36416; 85610

== ENCOUNTER 2021-12-26 11:13 | Outpatient (RCR) | payer MEDICARE, OTHER, SELFPAY ==
[2021-12-07 05:32] VITALS: BMI 46.2
[2021-12-16 09:40] LABS: INR Fingerstick 1.9; Prothrombin Time Fingerstick 23.1 SEC (11.7-14.9)
[2021-12-26 11:36] LABS: Prothrombin Time Fingerstick 24.1 SEC (11.7-14.9)
== END 2021-12-26 18:00 | disposition home or self-care (01) ==
LOC: MTLAB 11:13
PROVIDERS: Family Provider Family Medicine; PCP Internal Medicine; Referring Provider Internal Medicine; Visit Provider Internal Medicine
DX: Z86.718 Personal history of other venous thrombosis and embolism (principal)
CPT/HCPCS: 36416; 85610